=== PATIENT | female | born 1995 | race African-American/Black ===

== ENCOUNTER 2017-09-09 15:30 | Emergency (ER) | payer MEDICAID ==
[2017-09-09] MEDS ORDERED: Dexamethasone 4 MG TAB ONE (16:14)
== END 2017-09-09 16:46 | disposition home or self-care (01) ==
LOC: SCSER 15:30
DX: J45.901 Unspecified asthma with (acute) exacerbation (principal)
CPT/HCPCS: 94640; J7620; J8540